=== PATIENT | female | born 1965 | race Caucasian/White ===

== ENCOUNTER 2021-12-11 07:06 | Day surgery (SDC) | payer OTHER ==
[2021-12-07 16:28] LABS: BILIRUBIN,URINE NEGATIVE (NEGATIVE); BLOOD, URINE NEGATIVE (NEGATIVE); CLARITY/URINE CLEAR (CLEAR); COLOR,URINE YELLOW (YELLOW); GLUCOSE,URINE NEGATIVE (NEGATIVE); KETONES,URINE NEGATIVE (NEGATIVE); LEUKOCYTE ESTERASE ,URINE TRACE (NEGATIVE); NITRITE, URINE POSITIVE (NEGATIVE); PROTEIN URINE NEGATIVE (NEGATIVE); UROBILINOGEN,URINE 0.2 (0.2-1.0)
[2021-12-07 16:37] LABS: BASOPHILS % (AUTO) 0.6 % (0.0-2.0); EOSINOPHILS # (AUTO) 0.2 K/uL (0.0-0.4); EOSINOPHILS % (AUTO) 2.6 % (0.0-4.0); HEMOGLOBIN 13.2 g/dL (12.0-16.0); LYMPHOCYTES # (AUTO) 0.6 K/uL (1.0-5.5); LYMPHOCYTES % (AUTO) 8.7 % (20.5-51.5); MEAN CORPUSCULAR HEMOGLOBIN 29 pg (27-31); MEAN CORPUSCULAR HGB CONC 34 % (32-36); MEAN CORPUSCULAR VOLUME 86 fL (79.0-98.0); MONOCYTES # (AUTO) 0.7 K/uL (0.0-1.0); MONOCYTES % (AUTO) 10.1 % (1.7-9.3); NEUTROPHILS # (AUTO) 5.3 K/uL (1.8-7.7); PLATELET COUNT (AUTO) 299 K/uL (130-430); RED BLOOD CELL COUNT(AUTO) 4.54 MIL/uL (4.2-6.2); WHITE BLOOD COUNT (AUTO) 6.8 K/uL (4.8-10.8)
[2021-12-07 16:38] LABS: BACTERIA,URINE MODERATE /HPF (None Seen); MUCUS,URINE None Seen /LPF (None Seen); RBC,URINE NONE SEEN /HPF (0-3)
[2021-12-07 16:47] LABS: PROTHROMBIN TIME 10.2 SECS (9.5-12.5)
[2021-12-07 16:54] LABS: ALBUMIN 3.8 g/dL (3.4-4.8); CALCIUM 8.7 mg/dL (8.4-11.0); CREATININE 0.95 mg/dL (0.55-1.30); POTASSIUM 3.8 mmol/L (3.5-5.1); TOTAL BILIRUBIN 0.3 mg/dL (0.0-1.0)
[~2021-12-11] VITALS: Ht 152.4 cm; Wt 108.9 kg
[~2021-12-11 07:06] MED LIST: CEFAZOLIN SOD 2 GM in D5W 50 ML IV ONE
[2021-12-11] MEDS ORDERED: HYDROmorphone 1 MG/ML INJ. CARTRIDGE IVP PRN ×2 (09:45)
[2021-12-11] MEDS ORDERED: HYDROmorphone 2 MG/ML VIAL IVP PRN (09:45)
[2021-12-11] MEDS ORDERED: ONDANSETRON HCL 4 MG/2 ML VIAL IVP PRN (11:15)
[2021-12-11] MEDS ORDERED: HYDROcodone/ACETAMIN 5-325 MG TAB (NORCO/ VICODIN) PO PRN ×2 (11:15)
[2021-12-11] MEDS: IBUPROFEN 800 MG TABLET PO ONE (13:05)
[2021-12-11] MEDS ORDERED: HYDROcodone/ACETAMIN 5-325 MG TAB (NORCO/ VICODIN) ONE (13:30)
[2021-12-11 13:58] VITALS: BP_SYST 132
== END 2021-12-11 14:49 | disposition home or self-care (01) ==
LOC: SDS 07:06
PROVIDERS: ATTEND Obstetrics & Gynecology Gynecology
DX: R87.613 High grade squamous intraepithelial lesion on cytologic smear of cervix (HGSIL) (principal); R87.619 Unspecified abnormal cytological findings in specimens from cervix uteri; R87.810 Cervical high risk human papillomavirus (HPV) DNA test positive; Z79.01 Long term (current) use of anticoagulants; K21.9 Gastro-esophageal reflux disease without esophagitis; F32.9 Major depressive disorder, single episode, unspecified; I10 Essential (primary) hypertension; E66.9 Obesity, unspecified; Z68.42 Body mass index [BMI] 45.0-49.9, adult; Z88.2 Allergy status to sulfonamides; Z79.899 Other long term (current) drug therapy; Z20.822 Contact with and (suspected) exposure to COVID-19
CPT/HCPCS: 36415 ×2; 57520; 58301; 71046; 80053; 81000; 84703; 85025; 85610; 85730; 86886 ×2; 86900 ×2; 86901 ×2; 87086; 87426; 87635; 88300; 88305; 88307; 88313; 88341; 88342; 93005; J0690; J7060; U0003